=== PATIENT | female | born 2005 ===

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

== ENCOUNTER → 2024-11-17 11:52 | Outpatient (CLI) | payer OTHER | END | disposition home or self-care (01) | LOC: PRENATAL 11:52 | PROVIDERS: ATTEND Obstetrics & Gynecology Maternal & Fetal Medicine | DX: O44.00 Complete placenta previa NOS or without hemorrhage, unspecified trimester (principal); Z3A.18 18 weeks gestation of pregnancy ==